=== PATIENT | female | born 1960 | race Caucasian/White ===

== ENCOUNTER 2022-05-05 12:22 | Emergency (ER) | payer BC, SELFPAY ==
[2022-05-05 12:38] VITALS: BP 145/85; PULSE 80; RESP 16; TEMP 36.7; O2SAT 99
--- NOTE | 2022-05-05 13:00 | ED.GENADULT ---
HPI - General Adult General Chief complaint: Abdominal Pain Stated complaint: Abdominal Pain Time Seen by Provider: 05/05/22 13:00 Source: patient, RN notes reviewed and old records reviewed Mode of arrival: ambulatory Limitations: no limitations History of Present Illness HPI narrative: 62-year-old female presents to the [facility] with her was 17 days of mild abdominal discomfort, minor nausea without vomiting. No appetite. States she just really has not felt great. Denies any fevers or chest pain. Denies shortness of breath. No pain on palpation of the abdomen. Denies urinary symptoms. Denies back pain, no CVA tenderness. Reports a 5 lb weight loss over the last 17 days Patient reports nausea without vomiting. No diarrhea but has had very loose stools. States that her primary care provider retired. Thought that we could do lab work here in the clinic, explained that we do not do lab work, blood work. Discussed signs and symptoms to go the ER, and the importance of following up with primary care provider. Both patient and verbalized understanding Onset (ago): day(s) (17) Related Data Home Medications Medication Instructions Recorded Confirmed bupropion HCl 150 mg 24 hr tablet, 150 mg PO BID 05/05/22 05/05/22 extended release Allergies Allergy/AdvReac Type Severity Reaction Status Date / Time No Known Allergies Allergy Verified 05/05/22 13:02 Review of Systems Review of Systems: All systems reviewed & are unremarkable except as noted in HPI and below Constitutional: Constitutional: Reports no additional constitutional complaints Eyes: Eyes: Reports no additional eye complaints ENT: Reports system reviewed and no additional complaints, except as documented Cardiovascular: Cardiovascular: Reports no additional cardiovascular complaints, Denies chest pain and Denies dyspnea Respiratory: Respiratory: Reports no additional respiratory complaints, Denies chest congestion, Denies cough and Denies dyspnea Gastrointestinal: Gastrointestinal: Reports no additional gastrointestinal complaints, Denies abdominal pain, Reports nausea and Denies vomiting Musculoskeletal: Musculoskeletal: Reports no additional musculoskeletal complaints Integumentary/Breasts: Skin/Breast: Reports system reviewed and no additional complaints, except as docu Neurologic: Reports system reviewed and no additional complaints, except as documented Psychiatric: Psychiatric: Reports no additional psychiatric complaints Allergic/Immunologic: Allergic/Immunologic: Reports no additional allergic/immunologic complaints [facility] Family History Family History Father Diabetes mellitus Hypertension Malignant neoplasm of prostate Family history of coronary artery disease Family history of elevated blood lipids Family history of cardiovascular disease Mother Diabetes mellitus Hypertension Family history of elevated blood lipids Other Depression Family history of type 1 diabetes mellitus Social History Social History Smoking status: Never smoker Alcohol intake: never Comments At the time of my signature, I reviewed and agree with the nursing past medical, surgical, social, and family history. There is no relevant family history pertinent to the patient complaint. Exam Const: General: cooperative, healthy appearing, comfortable, no acute distress, well developed, alert and well nourished Nutritional Appearance: well nourished Orientation/consciousness: patient oriented x3 Limitations: no limitations HENMT: Head: normal to inspection Ears: hearing grossly normal bilaterally and external ears normal Face/Nose/Sinus: Normal external nose present, Normal nares present, Normal nasal mucous membranes and turbinates present and normal facial exam Face and sinus: normal facial exam Mouth: Yes Normal or
== END 2022-05-05 13:22 | disposition home or self-care (01) ==
PROVIDERS: Emergency Provider Nurse Practitioner; PCP Family Medicine
DX: R11.0 Nausea (principal)
CPT/HCPCS: 99211; G0463

== ENCOUNTER 2022-05-09 14:22 | Outpatient (CLI) | payer BC, SELFPAY ==
[2022-05-09 19:48] LABS: Basophils Absolute Auto 0.1 K/mm3 (0.0-0.1); Eosinophils Absolute Auto 0.1 K/mm3 (0-0.3); Hematocrit 40.5 % (37.0-47.0); Hemoglobin 13.8 g/dL (12.0-15.0); Immature Granulocyte Absolute 0.01 K/mm3 (0.00-0.031); Immature Granulocyte Percent A 0.2 % (0-0.5); Lymphocytes Absolute Auto 1.55 K/mm3 (0.9-3.2); Lymphocytes Percent Auto 31.6 % (18.3-44.2); Mean Corpuscular HGB Conc 34.1 g/dl (32-36); Mean Corpuscular Hemoglobin 29.6 pg (26-34); Mean Corpuscular Volume 86.7 fl (80-100); Monocytes Absolute Auto 0.4 K/mm3 (0.1-0.6); Monocytes Percent Auto 7.1 % (2.6-8.5); Neutrophils Absolute Auto 2.9 K/mm3 (1.3-6.7); Neutrophils Percent Auto 59.1 % (45.5-73.1); Platelet Count Result 281 k/mm3 (150-375); Red Blood Count 4.67 M/mm3 (4.2-5.4); Red Cell Distribution Width 12.3 % (11.5-14.5); White Blood Count 4.9 K/mm3 (4.5-10.0)
[2022-05-09 20:42] LABS: Alanine Aminotransferase 23 U/L (6-35); Albumin Level 4.9 g/dL (3.5-5.1); Alkaline Phosphatase 99 U/L (38-126); Anion Gap 7 mmol/L (8-16); Aspartate Amino Transferase 37 U/L (14-36); Bilirubin,Total 0.6 mg/dL (0.2-1.3); Blood Urea Nitrogen 9 mg/dL (7-17); Calcium 9.7 mg/dL (8.4-10.2); Carbon Dioxide 29 mmol/L (22-30); Chloride 101 mmol/L (98-107); Cholesterol 237 mg/dL (0-200); Estimated Glomerular Filt Rate > 60; Glucose 91 mg/dL (65-110); HDL Direct 51 mg/dL; Potassium 3.7 mmol/L (3.4-5.0); Sodium 137 mmol/L (137-145); Triglycerides 69 mg/dL (<150)
[2022-05-09 20:53] LABS: LDL Cholesterol Direct 129 mg/dL
[2022-05-09 21:09] LABS: Thyroid Stimulating Hormone 0.431 uIU/mL (0.465-4.680)
== END 2022-05-09 14:23 | disposition home or self-care (01) ==
LOC: ANHGOSHLAB 14:23
PROVIDERS: PCP Family Medicine; Visit Provider Physician Assistant
DX: R63.0 Anorexia (principal); R63.4 Abnormal weight loss
CPT/HCPCS: 36415; 80053; 80061; 84443; 85025

== ENCOUNTER 2022-05-10 14:32 | Outpatient (CLI) | payer BC, SELFPAY ==
[2022-05-10 20:28] LABS: Free T4 Free Thyroxine 1.23 ng/mL (0.78-2.19)
[2022-05-15 20:27] LABS: Triiodothyronine T3 Free 2.7 pg/mL (2.3-4.2)
== END 2022-05-10 14:33 | disposition home or self-care (01) ==
LOC: ANHGOSHLAB 14:33
PROVIDERS: PCP Family Medicine; Visit Provider Physician Assistant
DX: E05.90 Thyrotoxicosis, unspecified without thyrotoxic crisis or storm (principal)
CPT/HCPCS: 36415; 84439; 84481; 86800

== ENCOUNTER 2022-06-03 13:20 | Outpatient (CLI) | payer BC, SELFPAY ==
[2022-06-03 12:44] LABS: Alanine Aminotransferase 25 U/L (6-35); Alkaline Phosphatase 98 U/L (38-126); Aspartate Amino Transferase 24 U/L (14-36); Bilirubin,Total 0.7 mg/dL (0.2-1.3); Lipase 163 U/L (23-300)
== END 2022-06-03 13:21 | disposition home or self-care (01) ==
PROVIDERS: PCP Family Medicine; Visit Provider Nurse Practitioner Family
DX: R53.83 Other fatigue (principal); R63.0 Anorexia; R19.4 Change in bowel habit
CPT/HCPCS: 36415; 80076; 83690; 86038; 87045; 87177; 87209; 87427

== ENCOUNTER 2022-07-12 00:32 | Day surgery (SDC) | payer BC, SELFPAY ==
[2022-06-28 13:25] VITALS: BMI 19.8
[2022-07-12 12:59] VITALS: BP 136/70; PULSE 63; RESP 18; TEMP 36.1; O2SAT 100
--- NOTE | 2022-07-12 13:04 | P.PNAN_ITS ---
Anes - Initial Pre Proc Eval Procedure: Operation Date: 07/12/22 14:00 Proposed Procedures p Esophagogastroduodenoscopy & Screening Colonoscopy - Chris Kline MD Date/Time: 07/12/22 13:04 Surgeon: Chris Mcdowell MD Pre Op Diagnosis: LUQP, RUQP, neoplasm screening Patient Data Age: 62 Gender: F Height: 1.68 m Weight: 55.3 kg Last Vital Signs Temp 36.1 C L 07/12/22 12:59 Pulse 63 07/12/22 12:59 Resp 18 07/12/22 12:59 BP 136/70 07/12/22 12:59 Pulse Ox 100 07/12/22 12:59 O2 Del Method Room Air 07/12/22 12:59 Allergies Allergy/AdvReac Type Severity Reaction Status Date / Time No Known Allergies Allergy Verified 07/12/22 12:57 Home Medications Medication Instructions Recorded Confirmed Type omeprazole 40 mg capsule,delayed 40 mg PO DAILY 1 month #30 caps 06/03/22 07/12/22 Rx release bupropion HCl 150 mg 24 hr tablet, 150 mg PO DAILY 06/28/22 07/12/22 History extended release Patient hx anesthesia problems: none Family hx anesthesia problems: none Results Review: All pre-operative results and documents have been reviewed as part of the pre- operative evaluation. [facility] Past Medical History Medical History Bilateral upper abdominal discomfort Fatigue Family History Family History Father Diabetes mellitus Hypertension Malignant neoplasm of prostate Family history of coronary artery disease Family history of elevated blood lipids Family history of cardiovascular disease Mother Diabetes mellitus Hypertension Family history of elevated blood lipids Other Depression Family history of type 1 diabetes mellitus Social History Social History Smoking status: Never smoker Alcohol intake: never Substance use type: does not use Lack of Transportation: No Lack of Food: Never True Current Housing: I Have Housing Concerned About Future Housing: No Difficulty Paying Gas/Electric Bills: No Difficulty Paying for Meds: No Currently Unemployed: No Education: High School Diploma/GED Difficulty w/ Childcare or Family Care: No Living arrangements: with family Spiritual care concerns: No Anes - Eval Final PreProcedure Day of Procedure 07/12/22 13:04 Patient weight: normal Heart: regular rate and rhythm Lungs: clear to auscultation Airway: Mallampati scale class II Neurological: alert and oriented Last oral intake: >/= 8 hours ASA classification: II Emergent: no Anesthetic plan: proceed Anesthesia type and monitoring: general GIVS and standard monitoring Results Review: All pre-operative results and documents have been reviewed as part of the pre- operative evaluation. Informed Consent: The patient's anesthetic plan and its attendant risks and benefits were discussed with the patient/family/POA. Questions were solicited and answers provided to the satisfaction of the patient/family/POA.
[2022-07-12] MEDS: LACTATED RINGERS 1,000 ML 150 ML IV CONT (13:07)
--- NOTE | 2022-07-12 13:59 | PM.HPGS ---
History of Present Illness History of Present Illness Consent: Risks, benefits, and alternatives have been discussed and questions answered. Patient agrees to proceed with procedure. Chief complaint: LUQP, RUQP, neoplasm screening Narrative: Marleny Chavez is a 62 year old female with anorexia, gi discomfort and weight loss for 12 weeks, finally just recently started feeling better, never had scopes. Used ppi but can not tell if helped. Review of Systems Constitutional: Constitutional: Denies headache(s) and Denies weakness Eyes: Eyes: Denies blurry vision ENT: Reports Normal hearing present, Denies headache(s) and Denies neck pain Cardiovascular: Cardiovascular: Denies chest pain and Denies dyspnea Respiratory: Respiratory: Denies dyspnea Gastrointestinal: Gastrointestinal: Reports no additional gastrointestinal complaints Genitourinary: Genitourinary: Denies dysuria Musculoskeletal: Musculoskeletal: Denies neck pain Integumentary/Breasts: Skin/Breast: Denies dry skin Neurologic: Reports Normal hearing present, Denies headache(s) and Denies weakness Psychiatric: Psychiatric: Denies anxiety Endocrine: Endocrine: Denies change in body appearance Hematologic/Lymphatic: Hematologic/Lymphatic: Denies easy bleeding Allergic/Immunologic: Allergic/Immunologic: Denies urticaria PMFSH Past Medical History Medical History Bilateral upper abdominal discomfort Fatigue Family History Family History Father Diabetes mellitus Hypertension Malignant neoplasm of prostate Family history of coronary artery disease Family history of elevated blood lipids Family history of cardiovascular disease Mother Diabetes mellitus Hypertension Family history of elevated blood lipids Other Depression Family history of type 1 diabetes mellitus Social History Social History Smoking status: Never smoker Alcohol intake: never Substance use type: does not use Lack of Transportation: No Lack of Food: Never True Current Housing: I Have Housing Concerned About Future Housing: No Difficulty Paying Gas/Electric Bills: No Difficulty Paying for Meds: No Currently Unemployed: No Education: High School Diploma/GED Difficulty w/ Childcare or Family Care: No Living arrangements: with family Spiritual care concerns: No Meds Home Medications and Allergies Home Medications Medication Instructions Recorded Confirmed Type omeprazole 40 mg capsule,delayed 40 mg PO DAILY 1 month #30 caps 06/03/22 07/12/22 Rx release bupropion HCl 150 mg 24 hr tablet, 150 mg PO DAILY 06/28/22 07/12/22 History extended release Allergies Allergy/AdvReac Type Severity Reaction Status Date / Time No Known Allergies Allergy Verified 07/12/22 12:57 Vital Signs Vital Signs - 24 hr 07/12/22 12:59 Temperature 96.9 F L Pulse Rate 63 Respiratory Rate 18 Blood Pressure 136/70 Pulse Oximetry 100 Oxygen Delivery Room Air Exam Const: General: comfortable and no acute distress HENMT: Face/Nose/Sinus: Normal nares present Eyes: General: appearance normal, both eyes and all related structures Neck: Neck: no JVD Resp: Auscultation: clear to auscultation bilaterally Cardio: Rate: regular rate Rhythm: regular rhythm GI: Inspection: non-distended GI Palp: Yes Soft to palpation Skin: General skin exam: normal color Neuro: General: gait normal Speech: normal speech Extrem: General: normal to inspection Psych: Mental Status: mental status grossly normal Assessment and Plan Assessment and plan (1) Weight loss: Code(s): R63.4 - Abnormal weight loss Status: Acute Assessment and Plan: egd and colonoscopy already feeling better (2) Decreased appetite: Code(s): R63.0 - Anorexia
[2022-07-12 14:35] VITALS: BP 125/68; PULSE 70; RESP 16; O2SAT 100
[2022-07-12 14:45] VITALS: BP 122/72; PULSE 68; RESP 18; O2SAT 100
[2022-07-12 14:55] VITALS: BP 123/78; PULSE 66; RESP 18; O2SAT 100
--- NOTE | 2022-07-12 14:55 | SUR.OPER ---
EGD: [id number], COLONOSCOPY: [id number]
== END 2022-07-12 15:02 | disposition home or self-care (01) ==
PROVIDERS: PCP Family Medicine; Visit Provider Internal Medicine Gastroenterology
PROC: 0DJ08ZZ Inspection of Upper Intestinal Tract, Via Natural or Artificial Opening Endoscopic (ICD-10-PCS; CPT 43235; principal; 2022-07-12 14:00)
DX: Z12.11 Encounter for screening for malignant neoplasm of colon (principal); K57.30 Diverticulosis of large intestine without perforation or abscess without bleeding; K29.70 Gastritis, unspecified, without bleeding; K64.8 Other hemorrhoids
CPT/HCPCS: 45378; 43239; 88305; J0461; J2704; J7120